=== PATIENT | female | born 1955 | race Caucasian/White ===

== ENCOUNTER 2019-10-22 04:18 | Emergency (ER) | payer MEDICAID, OTHER ==
[~2019-10-22] VITALS: Ht 172.7 cm; Wt 77.3 kg
[~2019-10-22 04:18] MED LIST: CYCL-1 PO; TRAM50TA2 PO
[2019-10-22] MEDS ORDERED: normal saline 1000ML IV soln IVB ONE (04:30)
--- NOTE | 2019-10-22 04:30 | NUR ---
PT DID A UA AND SHE HAD A MUCOUS D/C WITH RED BLOOD ON IT THE SIZE OF A QUARTER I WAS ABLE TO SEE
[2019-10-22 04:42] LABS: CLARITY,URINE SLIGHTLY CLOUDY (Clear); COLOR,URINE YELLOW (Yellow); GLUCOSE, URINE NEGATIVE (Neg); KETONES,URINE NEGATIVE (Neg); LEUKOCYTE ESTERASE ,URINE SMALL (Neg); NITRITES, URINE NEGATIVE (Neg); OCCULT BLOOD,URINE SMALL (Neg); PH,URINE 5.5 (4.8-8.0); PROTEIN,URINE TRACE mg/dl (Neg); UA COLLECTION TYPE CLN CATCH MIDSTREAM; UROBILINOGEN,URINE 0.2 E.U/dL (0.2-1.0)
[2019-10-22 04:49] LABS: BACTERIA,URINE 1+ /HPF (Neg); RBC,URINE 0-2 /HPF (0-2); SQUAMOUS EPITHELIAL CELL,UR FEW /LPF (FEW); WBC,URINE 20-30 /HPF (0-4)
[2019-10-22 04:57] LABS: ALANINE AMINOTRANSFERASE 28 U/L (12-78); ALBUMIN 3.5 G/DL (3.4-5.0); ALBUMIN/GLOBULIN RATIO 1.1 (1.1-1.5); ALKALINE PHOSPHATASE 86 IU/L (46-116); ANION GAP 7 (8-16); ASPARTATE AMINO TRANSFERASE 23 U/L (10-37); BILIRUBIN,TOTAL 1.1 MG/DL (0.1-1.0); BLOOD UREA NITROGEN 19 MG/DL (7-18); BUN/CREATININE RATIO 18.8 (6.6-38.0); CALCIUM 8.6 MG/DL (8.5-10.1); CHLORIDE 107 MMOL/L (99-107); CREATININE 1.01 MG/DL (0.40-0.90); GLUCOSE 133 MG/DL (70-104); LIPASE 101 U/L (73-393); POTASSIUM 3.6 MMOL/L (3.5-5.1); SODIUM 141 MMOL/L (135-145); TOTAL CARBON DIOXIDE 26.7 MMOL/L (24-32); TOTAL PROTEIN 6.8 G/DL (6.4-8.2); eGFR 56 ML/MIN
[2019-10-22 05:02] LABS: BASOPHILS # (AUTO) 0.1 X10'3 (0-0.2); BASOPHILS % (AUTO) 1.1 % (0-1); EOSINOPHILS # (AUTO) 0.4 X10'3 (0-0.9); EOSINOPHILS % (AUTO) 4.1 % (0-6); HEMATOCRIT 31.7 % (35.0-45.0); LYMPHOCYTES # (AUTO) 2.1 X10'3 (1.1-4.8); LYMPHOCYTES % (AUTO) 21.5 % (21-51); MEAN CORPUSCULAR HEMOGLOBIN 18.1 PG (27.0-31.0); MEAN CORPUSCULAR HGB CONC 28.3 g/dL (33.0-36.5); MONOCYTES # (AUTO) 0.8 X10'3 (0-0.9); MONOCYTES % (AUTO) 8.4 % (2-12); NEUTROPHILS # (AUTO) 6.2 X10'3 (1.8-7.7); NEUTROPHILS % (AUTO) 64.9 % (42-75); PLATELET COUNT 300 X10'3 (140-440); RED BLOOD COUNT 4.95 X10'6 (4.20-5.60); RED CELL DISTRIBUTION WIDTH 22.5 % (11.5-14.5); WHITE BLOOD COUNT 9.6 X10'3 (4.5-11.0)
[2019-10-22] MEDS ORDERED: iohexol 300mg/ml 100ml inj. ONE (05:49)
--- NOTE | 2019-10-22 06:09 | NUR ---
pt back from CT and hooked back up to IVF and IV site is WNLs and I tucked her in under her blanket and she has no needs.
[2019-10-22 06:12] LABS: HYPOCHROMASIA 2+; PLATELET ESTIMATE NORMAL
[2019-10-22 06:13] LABS: ANISOCYTOSIS 3+; ELLIPTOCYTES 1+; MICROCYTOSIS 2+; POLYCHROMASIA 1+
[2019-10-22 06:50] VITALS: BP 153/83
[2019-10-22] MEDS ORDERED: METR-159 PO (06:59)
== END 2019-10-22 07:10 | disposition home or self-care (01) ==
LOC: ER 04:19
DX: K52.9 Noninfective gastroenteritis and colitis, unspecified (principal); R11.2 Nausea with vomiting, unspecified; R19.7 Diarrhea, unspecified; Z98.890 Other specified postprocedural states; Z79.899 Other long term (current) drug therapy
CPT/HCPCS: 36415; 74177; 80053; 81001; 83690; 85025; 87077; 87088; 87186; 96360; 99285; J7030; Q9967

== ENCOUNTER 2023-08-17 20:15 | Emergency (ER) | payer MEDICARE, MEDICAID ==
[~2023-08-17] VITALS: Ht 172.7 cm; Wt 77.0 kg
[~2023-08-17 20:15] MED LIST changes: +ATOR-2 PO; -CYCL-1 PO; +DOCU-262 PO; +FERR325T29 PO; +GABA300C PO; +LOSA50TA64 PO; +NICO-687 TD; +PANT-47 PO; +TIZA-205 PO; -TRAM50TA2 PO
[2023-08-17 20:36] VITALS: TEMP 98.8
[2023-08-17 21:18] LABS: EOSINOPHILS # (AUTO) 0.1 X10'3 (0-0.9); LYMPHOCYTES # (AUTO) 1.3 X10'3 (1.1-4.8); MEAN PLATELET VOLUME 9.5 FL (7.4-10.4); MONOCYTES # (AUTO) 0.7 X10'3 (0-0.9); NEUTROPHILS # (AUTO) 3.9 X10'3 (1.8-7.7)
[2023-08-17 21:20] LABS: BASOPHILS % (AUTO) 0.5 % (0-1); EOSINOPHILS % (AUTO) 1.9 % (0-6); HEMATOCRIT 44.2 % (35.0-45.0); HEMOGLOBIN 14.2 g/dl (12.0-16.0); LYMPHOCYTES % (AUTO) 20.8 % (21-51); MEAN CORPUSCULAR HEMOGLOBIN 26.9 PG (27.0-31.0); MEAN CORPUSCULAR HGB CONC 32.1 g/dL (33.0-36.5); MEAN CORPUSCULAR VOLUME 83.8 FL (78-98); MONOCYTES % (AUTO) 12.1 % (2-12); NEUTROPHILS % (AUTO) 64.7 % (42-75); RED BLOOD COUNT 5.28 X10'6 (4.20-5.60); RED CELL DISTRIBUTION WIDTH 16.8 % (11.5-14.5)
[2023-08-17 21:58] LABS: PLATELET COUNT 201 X10'3 (140-440)
[2023-08-17 22:11] LABS: ALANINE AMINOTRANSFERASE 17 U/L (12-78); ALBUMIN 3.2 G/DL (3.4-5.0); ALBUMIN/GLOBULIN RATIO 0.9 (1.1-1.5); ALKALINE PHOSPHATASE 65 IU/L (46-116); ANION GAP 8 (8-16); ASPARTATE AMINO TRANSFERASE 12 U/L (10-37); BILIRUBIN,TOTAL 0.5 MG/DL (0.1-1.0); BLOOD UREA NITROGEN 20 MG/DL (7-18); BUN/CREATININE RATIO 16.4 (10.0-20.0); CALCIUM 8.6 MG/DL (8.5-10.1); CHLORIDE 102 MMOL/L (99-107); CREATININE 1.22 MG/DL (0.40-0.90); GLUCOSE 142 MG/DL (70-104); POTASSIUM 4.2 MMOL/L (3.5-5.1); SODIUM 139 MMOL/L (135-145); TOTAL CARBON DIOXIDE 29.3 MMOL/L (24-32); TOTAL PROTEIN 6.6 G/DL (6.4-8.2); eCRCL 46 ML/MIN; eGFR 44 ML/MIN
[2023-08-17 22:21] LABS: PRO BRAIN NATRIURETIC PEPTIDE 76 PG/ML (0-125)
[2023-08-17 22:44] LABS: BILIRUBIN,URINE SMALL (Neg); CLARITY,URINE TURBID (Clear); COLOR,URINE YELLOW (Yellow); GLUCOSE, URINE NEGATIVE (Neg); KETONES,URINE TRACE mg/dl (Neg); LEUKOCYTE ESTERASE ,URINE LARGE (Neg); NITRITES, URINE NEGATIVE (Neg); OCCULT BLOOD,URINE TRACE-INTACT (Neg); PH,URINE 5.5 (4.8-8.0); PROTEIN,URINE TRACE mg/dl (Neg); UROBILINOGEN,URINE 0.2 E.U/dL (0.2-1.0)
[2023-08-17 22:49] LABS: UA COLLECTION TYPE CLN CATCH MIDSTREAM
[2023-08-17 22:54] LABS: SQUAMOUS EPITHELIAL CELL,UR MANY /LPF (FEW)
[2023-08-17 22:55] LABS: BACTERIA,URINE 3+ /HPF (Neg); WBC,URINE 50-100 /HPF (0-4)
[2023-08-17] MEDS: albuterol 2.5 MG/3 ML nebule CONTNEB PRN (23:16)
[2023-08-17] MEDS: ipratropium 0.5 MG/2.5ML nebule IH ONE (23:17)
[2023-08-17 23:19] VITALS: PULSE 68; RESP 20; O2SAT 95
[2023-08-17] MEDS: normal saline 1000ml 1,000 ML IV ONE ×2 (23:21)
[2023-08-17] MEDS: methylPREDNISolone sod succ 125mg/2ml vial IV ONE (23:21)
[2023-08-17] MEDS: CefTRIAXone 2gm/D5W 50ml BAG 50 ML IV ONE (23:21)
[2023-08-18] MEDS: azithromycin/NS 500mg/250ml 250 ML IV ONE (00:04)
[2023-08-18 00:18] VITALS: PULSE 81; RESP 16; O2SAT 100
[2023-08-18] MEDS: ondansetron/PF 4mg/2ml inj IV ONE (00:27)
[2023-08-18 00:51] VITALS: BP 93/57; PULSE 79; RESP 20; O2SAT 94
[2023-08-18] MEDS ORDERED: ALBU8HFA INH (01:21)
[2023-08-18] MEDS ORDERED: LEVO-65 PO (01:21)
[2023-08-18] MEDS ORDERED: PRED20TA PO (01:21)
== END 2023-08-18 02:06 | disposition home or self-care (01) ==
LOC: ER 20:16
DX: J44.1 Chronic obstructive pulmonary disease with (acute) exacerbation (principal); R09.02 Hypoxemia; J98.01 Acute bronchospasm; N39.0 Urinary tract infection, site not specified; I10 Essential (primary) hypertension; Z79.899 Other long term (current) drug therapy
CPT/HCPCS: 36415; 71045; 80053; 81001; 83605; 83880; 84145; 84484; 85025; 87040; 93005; 94640; 94644; 96365; 96366; 96368; 96375; 99285; J0456; J0696; J2405; J2919; J7030; 94760; A4615; A7015